=== PATIENT | female | born 1995 | race Caucasian/White ===

== ENCOUNTER 2017-01-30 04:00 | Observation (INO) ==
--- NOTE | 2017-01-30 06:59 | Discharge Summary ---
Date of Encounter: 01/30/17 Time of Encounter: 06:58 - Discharge Diagnosis (1) 37 weeks gestation of Priority: Primary Status: Acute Comments: admit for observation (2) False labor Priority: Secondary Status: Acute Comments: labor precautions given (3) NST (non-stress test) reactive on surveillance Priority: Secondary Status: Acute Comments: fhr baseline 45 bpm moderate variability +15x15 accels no decels noted. - Discharge Medications Allergies/Adverse Reactions: 3 Allergy/AdvReac Type Severity Reaction Status Date / Time No Known Allergies Allergy Verified 09/16/16 22:48 Date of admission: 01/30/17 04:00 Discharging clinician: Annita Ríos Anticipated date of discharge: 01/30/17 - Patient Status Disposition: Home, Self-Care Condition: Good Functional capacity at discharge: independent ambulation - Discharge Instructions Follow Up With: Julia Aj DO [Partnered Physician] - - Diet and Activity Activity: increase activity as tolerated Diet: regular diet Hospital Course [employer] Hospital course: 21 y/o at 37 weeks gestation presented to labor and delivery for contractions. Patient reports +FM, denies LOF or VB. Patient made no cervical change after monitoring. Time Attestation: Total time spent providing and/or coordinating discharge services: Time Spent: Less than 30 minutes Exam - Other Additional findings: Patient seen and assessed by RN. FHR 145 bpm moderate variability +15x15 accels no decels noted.
[2017-01-30 10:59] LABS: Amphetamine Screen,Urine Negative ng/mL (Cutoff=1000); Barbiturate Screen,Urine Negative ng/mL (Cutoff=200); Benzodiazepines Screen,Urine Negative ng/mL (Cutoff=200); Cannabinoid Screen,Urine Negative ng/mL (Cutoff = 50); Cocaine Screen,Urine Negative ng/mL (Cutoff= 300); Opiate Screen,Urine Negative ng/mL (Cutoff=300); Phencyclidine Screen,Urine Negative ng/mL (Cutoff=25)
== END 2017-01-30 05:34 | disposition home or self-care (01) ==
LOC: 1NENULAB
PROVIDERS: ADMIT Advanced Practice Midwife; ATTEND Advanced Practice Midwife

== ENCOUNTER 2017-01-30 08:51 | Inpatient (IN) ==
[~2017-01-30 08:51] MED LIST: Famotidine 20 MG/2 ML VIAL IVP PRN; Metoclopramide 10 MG/2 ML VIAL IVP PRN; Ondansetron 4 MG/2 ML VIAL IVP PRN
[2017-01-30] MEDS ORDERED: Ringers Solution, Lactated 1,000 ML IVC SCH (09:00)
[2017-01-30 09:12] LABS: Basophils % 0.1 %; Eosinophils % 0.1 %; Hematocrit 33.6 % (35.3-44.9); Hemoglobin 11.2 g/dL (11.5-15.4); Immature Granulocytes % 0.9 % (0-4); Lymphocytes # 1.1 K/mcL (0.6-4.6); Lymphocytes % 5.5 %; Mean Corpuscular HGB Conc 33.3 g/dL (31.6-35.5); Mean Corpuscular Hemoglobin 32.7 pg (28.0-33.3); Mean Corpuscular Volume 98.2 fL (83.0-100.0); Mean Platelet Volume 10.1 fL (9.4-12.4); Monocytes # 0.7 K/mcL (0.0-1.3); Monocytes % 3.6 %; Neutrophils # 17.7 K/mcL (1.6-8.9); Platelet Count 236 K/mcL (140-400); Red Blood Count 3.42 M/mcL (3.82-4.97); Red Cell Distribution Width 13.7 % (11.5-14.5); Segmented Neutrophils % 89.8 %
[2017-01-30] MEDS ORDERED: *HR* FentaNYL (PF) 100 MCG/2 ML VIAL ONE (09:26)
[2017-01-30] MEDS ORDERED: *HR* Ropivacaine/PF 0.2% 10 ML AMPUL ONE (09:26)
[2017-01-30] MEDS ORDERED: Epidural Premix (fent/bupiv) 110 ML EP ONE (09:27)
--- NOTE | 2017-01-30 09:56 | Anesthesia Evaluation PreOp ---
Date of Encounter: 01/30/17 Time of Encounter: 09:54 - Past History Planned Operation: jhonathan Cardiac History: Denies any Significant Hx Pulmonary History: Denies Any Significant HX METAL FRAMER History: Denies Any Significant HX Other Medical History: Denies Any Significant HX Anesthesia History: No Prior Anesthetic Complications, Past Anesthesia : Yes Alcohol Use: none Drug use: none Medications and Allergies 3 Allergy/AdvReac Type Severity Reaction Status Date / Time No Known Allergies Allergy Verified 09/16/16 22:48 - Meds/Allergy Pre-op Review Medications Reviewed: Yes Allergies Reviewed: Yes Beta Blockers on Current Med List: No Anesthesia Results - Labs 01/30/17 08:55 Anesthesia Exam bp 108/73 Height: 65 - HEENT Pupil (Motor): Pupils equal Mallampati: II Teeth: Normal Oral Opening: Greater than 3 - METAL FRAMER LOC: Oriented METAL FRAMER Motor: Normal RUE, Normal LUE, Normal RLE, Normal LLE, Normal Face METAL FRAMER Sensory: Normal: RUE, LUE, RLE, LLE, Face - Cardiac Rhythm: Regular Murmur: None JVD: No Carotid Bruit: No - Pulmonary Breath Sounds: bilateral Clear Respiratory Effort: Symmetrical Anesthesia Assess/Plan ASA Score: 2 Modified [place] Scale for Level of Consciousness: Cooperative, oriented, and tranquil Anesthetic Plan: Regional Monitoring Plan: Standard Monitors
--- NOTE | 2017-01-30 09:59 | Anesthesia Procedures ---
Date of Encounter: 01/30/17 Time of Encounter: 09:57 Procedures: Anesthesia - Epidural/Spinal Patient ID/Chart reviewed: Yes Patient examined: Yes OB Eval: Gestational age: 37 weeks OB Eval: : 2 OB Eval: Hx Para: 0 OB Eval: Dilated at (cm): 4 OB Eval: Contractions: Non-stressed pattern Consent Obtained: Yes Supplemental Oxygen: None/Room Air Site Prep: Aseptic Technique Patient position: upright Local Anesthetic: Lidocaine 1% Amount of Local Anesthetic used: 3 Touhy Needle Gauge: 18 Touhy Needle Depth (cm): 3 Catheter Depth at Skin (cm): 12 Test Dose (1.5% Lido + Epi): Volume given (mls): 3 Test Dose Result: Negative Loading Dose: Fentanyl (mcg): 100 Loading Dose: Other: 6ml 0.2% ropivicaine, 2ml nss Loading Dose Administered: Thru Touhy Needle Infusion Med: 0.125% Bupivacaine w/ 2 mcg/ml Fentanyl Infusion Rate (mls/hr): [address]: Tegaderm Interspace Used: L3-L4 Loss of Resistance (RICHARD): Yes Blood: No CSF: No Paresthesia: No
[2017-01-30 10:58] LABS: Amphetamine Screen,Urine Negative ng/mL (Cutoff=1000); Barbiturate Screen,Urine Negative ng/mL (Cutoff=200); Benzodiazepines Screen,Urine Negative ng/mL (Cutoff=200); Cannabinoid Screen,Urine Negative ng/mL (Cutoff = 50); Cocaine Screen,Urine Negative ng/mL (Cutoff= 300); Opiate Screen,Urine Negative ng/mL (Cutoff=300); Phencyclidine Screen,Urine Negative ng/mL (Cutoff=25)
--- NOTE | 2017-01-30 11:54 | OB/GYN History & Physical ---
Date of Encounter: 01/30/17 Time of Encounter: 11:54 Assessment and Plan (1) SROM (spontaneous rupture of membranes) Current visit: Yes Status: Acute (2) Labor established Current visit: Yes Status: Acute Admit to labor and delivery Nubain and epidural as desired GBS negative Anticipate (3) 37 weeks gestation of Current visit: No Status: Acute History of Present Illness HPI: Ms. Reddy is a 21 year old female at 37+3 weeks gestation to labor and delivery with rupture of membranes and contractions, spontaneous rupture membrane clear fluid at 7:30 this morning, patient reports good movement, denies vaginal bleeding. complicated with Chlamydia treated in early . Labs: A-, rubella and varicella immune, GBS negative, all other serologies negative Past Med Surg Social Fam HX - Past Medical History Medical history: no medical history Psychiatric history: no psych history - Past Surgical History Surgical History: no surgical history - Social History Smoking Status: Never smoker Smokeless Tobacco Status: No Alcohol use: none Drug use: none - Family History Mother Hx Family Cardiac Disorders: Yes (hypertension) Obstetrical History - Pregnancies : 2 Para: 0 Term: 0 : 0 Ab's: 1 Livin Medications and Allergies Vitamins 1 tab PO DAILY 01/30/17 [History] 3 Allergy/AdvReac Type Severity Reaction Status Date / Time No Known Allergies Allergy Verified 09/16/16 22:48 Exam - Constitutional Constitutional: well developed, well nourished, no acute distress - Neck Neck exam: full ROM - Lungs Respiratory exam: CTAB - Cardiovascular Cardiovascular exam: RRR - Abdomen Abdomen: Present: bowel sounds normal, gravid, non tender - Extremities Extremities exam: normal capillary refill, normal inspection - Uterus Uterus exam: Present: normal size, normal contour Results Result Diagrams: 01/30/17 08:55 Abnormal lab results WBC 19.7 K/mcL (4.3-11.1) H 01/30/17 08:55 RBC 3.42 M/mcL (3.82-4.97) L 01/30/17 08:55 Hgb 11.2 g/dL (11.5-15.4) L 01/30/17 08:55 Hct 33.6 % (35.3-44.9) L 01/30/17 08:55 Neutrophils # 17.7 K/mcL (1.6-8.9) H 01/30/17 08:55 All other labs normal. - VTE Reasons for not Prescribing Prophylaxis: Treatment not Indicated - Low risk for VTE
[2017-01-30] MEDS ORDERED: Oxytocin 20 units/ LR 1000 mL 20 UNIT/1,000 ML BAG IVC ONE (12:54)
--- NOTE | 2017-01-30 13:12 | OB/GYN Procedure Note ---
Delivery - Delivery Date: 01/30/17 Provider: Julia Aj Intrapartum events: none Delivery monitor: external FHT, external uterine Anesthesia: epidural Estimated Blood Loss: 400 - (s) Infant A Infant Delivery Date: 01/30/17 Infant Delivery Time: 12:53 Presentation: vertex Position: BRIDGETTE Route of delivery: Gender: Female Viability: Viable at 1 minute: 8 at 5 mins: 9 Shoulder Dystocia: not encountered Specimens collected: cord blood Placenta: spontaneous Cord: 3 umbilical vessels - Repair Episiotomy: none Laceration Description: Labial (bilateral, hemmostatic without repair) - Complications Delivery complications: none Delivery comments: Called to room with patient complete and +2 station. Under maternal effort she delivered a viable female weight pending at time of this dictation and Apgars 8 and 9 at one and 5 minutes respectively over an intact perineum. Following delivery the head the infant was bulb suctioned. There was no nuchal cord or shoulder dystocia encountered. The body of the delivered with maternal effort and was placed on mom's abdomen. Cord was allowed to cease pulsations and then was double clamped and cut. Cord blood collected. Placenta delivered spontaneously, complete, and intact with a three-vessel cord. Bilateral labial lacerations were hemostatic without repair. Mother and are recovering in the LDR in stable condition. - Disposition Mom disposition: stable in LDR [place] disposition: stable in LDR
[2017-01-30] MEDS ORDERED: Oxytocin 20 units/ LR 1000 mL 20 UNIT/1,000 ML BAG IVC SCH (16:24)
[2017-01-30] MEDS ORDERED: Ibuprofen 600 MG TABLET PO PRN (16:24)
[2017-01-30] MEDS ORDERED: Acetaminophen 325 MG TABLET PO PRN (16:24)
[2017-01-30] MEDS ORDERED: Rho Immune Globulin 1,500 UNIT SYRINGE IM PRN (16:24)
[2017-01-31] MEDS ORDERED: Prenatal Vit/FA 1 EACH TABLET PO SCH (09:00)
--- NOTE | 2017-01-31 10:50 | Discharge Summary ---
Date of Encounter: 01/31/17 Time of Encounter: 10:49 - Discharge Diagnosis (1) Vaginal delivery Priority: Primary Status: Acute (2) Rh negative state in antepartum period Priority: Secondary Status: Acute (3) Mother currently breast-feeding Priority: Secondary Status: Acute - Discharge Medications Prescriptions: Ibuprofen [Motrin] 600 mg PO Q6HR PRN #30 tablet PRN Reason: Cramping Docusate [Colace] 100 mg PO BID #30 capsule Home Medications: Vitamins 1 tab PO DAILY 01/30/17 [History] Breast Pump [BREAST PUMP] 1 each .ROUTE AD #1 each 01/31/17 [Rx] Docusate [Colace] 100 mg PO BID #30 capsule 01/31/17 [Rx] Ibuprofen [Motrin] 600 mg PO Q6HR PRN #30 tablet 01/31/17 [Rx] Allergies/Adverse Reactions: 3 Allergy/AdvReac Type Severity Reaction Status Date / Time No Known Allergies Allergy Verified 09/16/16 22:48 Data Procedures and tests throughout hospitalization: Laboratory Tests 01/30/17 01/30/17 01/30/17 08:55 08:58 13:24 WBC 19.7 H RBC 3.42 L Hgb 11.2 L Hct 33.6 L MCV 98.2 MCH 32.7 MCHC 33.3 RDW 13.7 Plt Count 236 MPV 10.1 Immature Gran % 0.9 Seg Neutrophils % 89.8 Lymphocytes % 5.5 Monocytes % 3.6 Eosinophils % 0.1 Basophils % 0.1 Neutrophils # 17.7 H Lymphocytes # 1.1 Monocytes # 0.7 Eosinophils # 0.0 Basophils # 0.0 Urine Opiates Screen Negative Ur Barbiturates Screen Negative Ur Phencyclidine Scrn Negative Ur Amphetamines Screen Negative U Benzodiazepines Scrn Negative Urine Cocaine Screen Negative U Marijuana (THC) Screen Negative Screen NEGATIVE Baby's Blood Type A RH POSITIVE Mother's Blood Type A RH NEGATIVE Rhogam Indicated YES Rhogam Req for Mother 1 Labs on day of discharge: Labs from last 24 hours 01/30/17 01/30/17 13:24 08:58 Urine Opiates Screen Negative Ur Barbiturates Screen Negative Ur Phencyclidine Scrn Negative Ur Amphetamines Screen Negative U Benzodiazepines Scrn Negative Urine Cocaine Screen Negative U Marijuana (THC) Screen Negative Screen NEGATIVE Baby's Blood Type A RH POSITIVE Mother's Blood Type A RH NEGATIVE Rhogam Indicated YES Rhogam Req for Mother 1 Date of admission: 01/30/17 08:51 Primary care physician: PCP NONE Consults: 01/30/17 16:24 Consult to [employer] Supervisor [CONS] Routine Comment: Vaginal delivery, consult needed Discharging clinician: Danielle Butler Anticipated date of discharge: 01/31/17 - Patient Status Disposition: Home, Self-Care Condition: Good Functional capacity at discharge: independent ambulation Overall status at discharge: patient is progressing back to baseline - Discharge Instructions Follow Up With: NONE,PCP [Primary Care Provider] - Julia Aj, DO [Partnered Physician] - - Diet and Activity Activity: increase activity as tolerated Diet: regular diet Hospital Course Reason for admission: active labor Delivery: Episiotomy: none Laceration: other (labial) Other procedures: none complications: none Discharge diagnosis: IUP at term delivered baby: female Hospital course: - Delivery Date: 01/30/17 Provider: Julia Aj Intrapartum events: none Delivery monitor: external FHT, external uterine Anesthesia: epidural Estimated Blood Loss: 400 - Infant (s) Infant A Delivery Date: 01/30/17 Infant Delivery Time: 12:53 Presentation: vertex Position: BRIDGETTE Route of delivery: Gender: Female Viability: Viable at 1 minute: 8 at 5 mins: 9 Shoulder Dystocia: not encountered Specimens collected: cord blood Placenta: spontaneous Cord: 3 umbilical vessels - Repair Episiotomy: none Laceration Description: Labial (bilateral, hemmostatic without repair) - Complications Delivery complications: none - Disposition Mom disposition: home PPD#1 [place] disposition: home with mother, Time Attestation: Total time spent providing and/or coordinating discharge services: Time Spent: Less than 30 minutes Exam - Constitutional Vitals: Temp Pulse Resp BP Pulse Ox 98.4 F 86 18 94/60 96 01/31/17 03:07 01/31/17 03:07 01/31/17 03:07 01/31/17 03:07 01/31/17 03:07 General appearance IM: A&O X 3, pleasant, no acute distress - Respiratory Respiratory exam: Present: CTAB - Cardiovascular Cardiovascular exam IM: Present: RRR, +S1, +S2 - GI/Abdominal GI/Abdominal exam IM: soft - Rectal Rectal exam: deferred - External exam: normal external exam Uterine Tone: Firm Uterus Position: 1 Finger Below Umbilicus - Extremities Exam Extremities exam IM: Present: normal inspection - Neurological Exam Neurological exam: normal gait, oriented X3 - Psychiatric Additional comments: reports good mood - Other Additional findings: declines control until pp visit
[2017-01-31 12:12] VITALS: BP 102/66
== END 2017-01-31 13:30 | disposition home or self-care (01) | DRG 560 ==
LOC: 1NENULAB → 1NENUOBS 15:44
PROVIDERS: ADMIT Obstetrics & Gynecology; ATTEND Obstetrics & Gynecology